=== PATIENT | female | born 1965 | race African-American/Black ===

== ENCOUNTER 2023-11-22 20:30 | Emergency (ER) | payer OTHER ==
[2023-11-22 21:08] VITALS: BP 121/74; PULSE 85; RESP 18; TEMP 98.3; BMI 31.0
[2023-11-22] MEDS ORDERED: ACETAMINOPHEN INJECTION 100 ML IVPB ONE (21:47)
[2023-11-22] MEDS: SODIUM CHLORIDE 1,000 ML IV STA (22:04)
[2023-11-22] MEDS: ACETAMINOPHEN 1000 MG/100 ML BAG IVPB ONE (22:05)
[2023-11-22 22:10] LABS: HEMATOCRIT 38.5 % (32.4-45.2); HEMOGLOBIN 12.3 G/dL (10.7-15.3); MCH 28.9 pg (25.7-33.7); MEAN CELL VOLUME 90.1 fl (80-96); MEAN PLT VOLUME 8.5 fl (7.5-11.1); PLATELET COUNT 259.2 10^3/uL (134-434); RBC 4.27 10^6/uL (3.60-5.2); RDW 14.3 % (11.6-15.6); WHITE BLOOD COUNT 6.5 10^3/uL (4.0-10.8)
[2023-11-22 22:28] LABS: PLATELET ESTIMATE ADEQUATE
[2023-11-22 22:30] LABS: ALBUMIN 4.4 g/dl (3.4-5.0); BILIRUBIN,TOTAL 0.4 mg/dl (0.2-1); CALCIUM 9.9 mg/dl (8.5-10.1); CREATININE 0.6 mg/dl (0.6-1.3); POTASSIUM 4.8 mmol/L (3.5-5.1); TOT PROT 6.5 g/dl (6.4-8.2)
[2023-11-23] MEDS: HYOSCYAMINE SULFATE 0.125 MG *ODT PO ONE (01:04)
== END 2023-11-23 01:06 | disposition home or self-care (01) ==
LOC: FER 20:30
PROC: 3E033NZ Introduction of Analgesics, Hypnotics, Sedatives into Peripheral Vein, Percutaneous Approach (ICD-10-PCS; principal; 2023-11-22)
PROC: 3E0337Z Introduction of Electrolytic and Water Balance Substance into Peripheral Vein, Percutaneous Approach (ICD-10-PCS; 2023-11-22)
DX: R10.12 Left upper quadrant pain (principal); R10.32 Left lower quadrant pain; R53.81 Other malaise; R63.0 Anorexia
CPT/HCPCS: 36415; 74177-TC; 80053; 81003; 85027; 99285-25; J0131; Q9967